=== PATIENT | female | born 2000 | race Caucasian/White ===

== ENCOUNTER 2019-05-21 06:00 | Inpatient (IN) ==
[2019-05-21] MEDS ORDERED: Naloxone 0.4 MG/ML INJ IVP PRN (06:07)
[2019-05-21] MEDS ORDERED: Metoclopramide 10 MG/2 ML VIAL IVP PRN (06:07)
[2019-05-21] MEDS ORDERED: Famotidine 20 MG/2 ML VIAL IVP PRN (06:07)
[2019-05-21] MEDS ORDERED: Lidocaine 1% 20 ML MDV INFILT PRN (06:07)
[2019-05-21] MEDS ORDERED: Azithromycin 500 MG in 0.9 % Sodium Chloride 250 ML IVPB ONE (06:07)
[2019-05-21] MEDS ORDERED: Ondansetron 4 MG/2 ML VIAL IVP PRN (06:07)
[2019-05-21] MEDS ORDERED: *HR* FentaNYL (PF) 100 MCG/2 ML VIAL IVP PRN (06:07)
[2019-05-21] MEDS ORDERED: Lidocaine -MPF 2% 5 ML VIAL ONE (07:41)
[2019-05-21 08:25] LABS: Basophils % 0.1 %; Eosinophils % 0.6 %; Hematocrit 29.5 % (35.3-44.9); Hemoglobin 9.6 g/dL (11.5-15.4); Immature Granulocytes % 0.4 % (0-4); Lymphocytes % 29.5 %; Mean Corpuscular HGB Conc 32.5 g/dL (31.6-35.5); Mean Corpuscular Hemoglobin 24.4 pg (28.0-33.3); Mean Corpuscular Volume 75.1 fL (83.0-100.0); Mean Platelet Volume 10.7 fL (9.4-12.4); Monocytes # 0.7 K/mcL (0.0-1.3); Monocytes % 9.9 %; Platelet Count 216 K/mcL (140-400); Red Blood Count 3.93 M/mcL (3.82-4.97); Red Cell Distribution Width 13.9 % (11.5-14.5); Segmented Neutrophils % 59.5 %; White Blood Count 6.8 K/mcL (4.3-11.1)
[2019-05-21] MEDS ORDERED: EPHEDrine 50 MG/ML VIAL IVP PRN (08:40)
[2019-05-21] MEDS ORDERED: Epidural Premix (fent/bupiv) 110 ML EP SCH (08:45)
[2019-05-21] MEDS: miSOPROStoL 25 MCG TABLET PO PRN ×2 (08:54→13:03)
[2019-05-21 09:10] LABS: Amphetamine Screen,Urine Negative ng/mL (Cutoff=1000); Barbiturate Screen,Urine Negative ng/mL (Cutoff=200); Benzodiazepines Screen,Urine Negative ng/mL (Cutoff=200); Cannabinoid Screen,Urine Negative ng/mL (Cutoff = 50); Cocaine Screen,Urine Negative ng/mL (Cutoff= 300); Opiate Screen,Urine Negative ng/mL (Cutoff=300); Phencyclidine Screen,Urine Negative ng/mL (Cutoff=25)
[2019-05-21] MEDS ORDERED: Oxytocin 20 units/ LR 1000 mL 20 UNIT/1,000 ML BAG IVC SCH (18:15)
[2019-05-21] MEDS: Ringers Solution, Lactated 1,000 ML IVC SCH ×2 (18:34→20:46)
[2019-05-22] MEDS: Ringers Solution, Lactated 1,000 ML IVC SCH (03:16)
[2019-05-22] MEDS ORDERED: Acetaminophen 325 MG TABLET PO ONE (03:22)
[2019-05-22] MEDS ORDERED: *HR* FentaNYL (PF) 100 MCG/2 ML VIAL ONE (04:26)
[2019-05-22] MEDS ORDERED: Lidocaine/EPI 1:200k 2% PF 20 ML VIAL ONE (04:26)
[2019-05-22] MEDS ORDERED: Ampicillin 2 GM in 0.9 % Sodium Chloride Mini Bag 100 ML IVPB ONE (04:31)
[2019-05-22] MEDS ORDERED: *HR* OxyCODONE Immed Rel 5 MG TABLET PO PRN ×2 (04:36→07:53)
[2019-05-22] MEDS ORDERED: *HR* HYDROmorphone (PF) 1 MG/ML SYRINGE IVP PRN (04:36)
[2019-05-22] MEDS ORDERED: Acetaminophen IV 1,000 MG/100 ML INFUS..BTL IVPB ONE (04:36)
[2019-05-22] MEDS ORDERED: *HR* Oxytocin 10 UNIT/ML VIAL IM ONE (04:43)
[2019-05-22] MEDS ORDERED: Ringers Solution, Lactated 1,000 ML ONE (04:57)
[2019-05-22] MEDS ORDERED: *HR* Morphine Sulfate/PF 10 MG/10 ML AMPUL ONE (05:00)
[2019-05-22] MEDS ORDERED: Gentamicin 140 MG in 0.9 % Sodium Chloride 100 ML IVPB SCH (05:00)
[2019-05-22] MEDS ORDERED: Clindamycin 900 MG/50 ML 900 MG/50 ML IV.SOLN IVPB SCH ×2 (05:00→08:00)
[2019-05-22] MEDS ORDERED: Azithromycin 500 MG in 0.9 % Sodium Chloride 250 ML IVPB ONE (05:00)
[2019-05-22] MEDS ORDERED: Ketorolac 30 MG/ML VIAL ONE (05:18)
[2019-05-22] MEDS ORDERED: Ondansetron 4 MG/2 ML VIAL ONE (05:18)
[2019-05-22] MEDS ORDERED: Dexamethasone 4 MG/ML VIAL ONE (05:18)
[2019-05-22] MEDS ORDERED: Gentamicin 90 MG in 0.9 % Sodium Chloride 100 ML IVPB ONE (05:47)
[2019-05-22] MEDS ORDERED: Simethicone 80 MG TAB.CHEW PO PRN (07:53)
[2019-05-22] MEDS ORDERED: Rho Immune Globulin 1,500 UNIT SYRINGE IM PRN (07:53)
[2019-05-22] MEDS ORDERED: Sennosides 8.6 MG TABLET PO PRN (07:53)
[2019-05-22] MEDS ORDERED: Ringers Solution, Lactated 1,000 ML IVC SCH (07:53)
[2019-05-22] MEDS ORDERED: Ondansetron 4 MG/2 ML VIAL IVP PRN (07:53)
[2019-05-22] MEDS ORDERED: Metoclopramide 10 MG/2 ML VIAL IVP PRN (07:53)
[2019-05-22] MEDS ORDERED: Oxytocin 20 units/ LR 1000 mL 20 UNIT/1,000 ML BAG IVC SCH (07:53)
[2019-05-22] MEDS ORDERED: Ampicillin 1,000 MG in 0.9 % Sodium Chloride Mini Bag 100 ML IVPB SCH (08:00)
[2019-05-22] MEDS: Ibuprofen 600 MG TABLET PO PRN ×2 (08:57→20:00)
[2019-05-22] MEDS: Prenatal Vit/FA 1 EACH TABLET PO SCH (09:03)
[2019-05-22] MEDS: Gentamicin 140 MG in 0.9 % Sodium Chloride 100 ML IVPB SCH ×2 (09:07→17:01)
[2019-05-22] MEDS: Ampicillin 1,000 MG in 0.9 % Sodium Chloride Mini Bag 100 ML IVPB SCH ×3 (10:50→20:00)
[2019-05-22] MEDS: Clindamycin 900 MG/50 ML 900 MG/50 ML IV.SOLN IVPB SCH ×2 (12:49→20:45)
[2019-05-23] MEDS: Ampicillin 1,000 MG in 0.9 % Sodium Chloride Mini Bag 100 ML IVPB SCH ×2 (00:36→05:41)
[2019-05-23 00:44] LABS: Basophils % 0.2 %; Eosinophils % 0.1 %; Hematocrit 21.6 % (35.3-44.9); Immature Granulocytes % 0.5 % (0-4); Lymphocytes # 1.2 K/mcL (0.6-4.6); Lymphocytes % 12.3 %; Mean Corpuscular HGB Conc 33.8 g/dL (31.6-35.5); Mean Platelet Volume 10.3 fL (9.4-12.4); Monocytes # 0.8 K/mcL (0.0-1.3); Monocytes % 7.5 %; Platelet Count 177 K/mcL (140-400); Red Blood Count 2.92 M/mcL (3.82-4.97); Red Cell Distribution Width 14.7 % (11.5-14.5); Segmented Neutrophils % 79.4 %; White Blood Count 10.1 K/mcL (4.3-11.1)
[2019-05-23 00:45] LABS: Hemoglobin 7.3 g/dL (11.5-15.4)
[2019-05-23] MEDS: Gentamicin 140 MG in 0.9 % Sodium Chloride 100 ML IVPB SCH (01:32)
[2019-05-23] MEDS: Ibuprofen 600 MG TABLET PO PRN ×3 (01:54→17:25)
[2019-05-23] MEDS: Clindamycin 900 MG/50 ML 900 MG/50 ML IV.SOLN IVPB SCH (04:42)
[2019-05-23] MEDS: Prenatal Vit/FA 1 EACH TABLET PO SCH (08:32)
[2019-05-23] MEDS: *HR* OxyCODONE/APAP 5/325 TABLET PO PRN ×2 (08:33→21:32)
[2019-05-23] MEDS: Azithromycin 250 MG TABLET PO SCH (12:24)
[2019-05-23] MEDS: metroNIDAZOLE 500 MG TABLET PO SCH ×2 (12:24→20:05)
[2019-05-23 21:14] LABS: Basophils % 0.2 %; Eosinophils # 0.1 K/mcL (0.0-0.6); Eosinophils % 0.8 %; Hematocrit 22.9 % (35.3-44.9); Hemoglobin 7.5 g/dL (11.5-15.4); Immature Granulocytes % 0.5 % (0-4); Lymphocytes # 1.4 K/mcL (0.6-4.6); Lymphocytes % 15.6 %; Mean Corpuscular HGB Conc 32.8 g/dL (31.6-35.5); Mean Corpuscular Hemoglobin 24.6 pg (28.0-33.3); Mean Corpuscular Volume 75.1 fL (83.0-100.0); Mean Platelet Volume 10.3 fL (9.4-12.4); Monocytes # 0.7 K/mcL (0.0-1.3); Monocytes % 8.5 %; Neutrophils # 6.4 K/mcL (1.6-8.9); Platelet Count 210 K/mcL (140-400); Red Blood Count 3.05 M/mcL (3.82-4.97); Red Cell Distribution Width 14.9 % (11.5-14.5); Segmented Neutrophils % 74.4 %; White Blood Count 8.7 K/mcL (4.3-11.1)
[2019-05-24] MEDS: Azithromycin 250 MG TABLET PO SCH (07:35)
[2019-05-24] MEDS: Prenatal Vit/FA 1 EACH TABLET PO SCH (07:35)
[2019-05-24] MEDS: metroNIDAZOLE 500 MG TABLET PO SCH (07:35)
[2019-05-24] MEDS: Ibuprofen 600 MG TABLET PO PRN (07:48)
[2019-05-24 08:37] VITALS: BP 112/86
== END 2019-05-24 12:30 | disposition other institution (70) | DRG 787 ==
LOC: 1NENULAB 06:04 → 1NENUOBS 05-22 08:16
PROVIDERS: ADMIT Obstetrics & Gynecology; ATTEND Obstetrics & Gynecology